=== PATIENT | male | born 1970 | race Caucasian/White ===

== ENCOUNTER 2023-10-08 13:02 | Outpatient (CLI) | payer BC ==
[2023-10-08] MEDS ORDERED: Iopamidol 370 76% 100 ML VIAL ONE (13:20)
== END 2023-10-08 13:03 | disposition home or self-care (01) ==
LOC: BICCT 13:02
PROVIDERS: ATTEND Emergency Medicine
DX: C79.51 Secondary malignant neoplasm of bone (principal); C78.6 Secondary malignant neoplasm of retroperitoneum and peritoneum; C78.5 Secondary malignant neoplasm of large intestine and rectum; C78.02 Secondary malignant neoplasm of left lung; C78.01 Secondary malignant neoplasm of right lung; C77.1 Secondary and unspecified malignant neoplasm of intrathoracic lymph nodes; C78.7 Secondary malignant neoplasm of liver and intrahepatic bile duct; C79.72 Secondary malignant neoplasm of left adrenal gland; C79.71 Secondary malignant neoplasm of right adrenal gland; E04.1 Nontoxic single thyroid nodule
CPT/HCPCS: 71260; 74177; Q9967